=== PATIENT | male | born 1970 | race Caucasian/White ===

== ENCOUNTER 2024-01-17 17:14 | Inpatient (IN) | payer OTHER, SELFPAY ==
[2024-01-17] VITALS (7 sets, daily range): BP systolic 109–189; BP diastolic 71–109; BMI 30.9; BMI 30.6
[2024-01-17 14:20] LABS: % Basophils 0.2 % (0-2); % Immature Granulocytes 0.9 % (0-0.5); % Lymphocytes 2.4 % (20.5-51.1); % Monocytes 7.9 % (1.7-9.3); % Neutrophils 88.6 % (42.2-75.2); Absolute Basophils 0.1 10^3/uL (0-0.2); Absolute Immature Granulocytes 0.3 10^3/uL (0-0.05); Absolute Lymphocytes 0.8 10^3/uL (1.2-3.4); Absolute Monocytes 2.6 10^3/uL (0.1-0.6); Absolute Neutrophils 28.6 10^3/uL (1.4-6.5); Hematocrit 53.5 % (39.0-52.0); Hemoglobin 18.1 g/dL (13.0-18.0); Mean Corp Hgb Conc. 33.8 g/dL (33.0-37.0); Mean Corpuscular Hgb 29.9 pg (27.0-31.0); Mean Corpuscular Volume 88.3 fL (80.0-94.0); Nucleated Red Blood Cells % 0 % (-); Platelet Count 301 10^3/uL (130-400); Red Blood Cell Count 6.06 10^6/uL (4.70-6.10); Red Cell Dist. Width 13.3 % (11.5-14.5); White Blood Cell Count 32.3 10^3/uL (4.8-10.8)
[2024-01-17 14:38] LABS: ALT (SGPT) 25 U/L (0-50); AST (SGOT) 25 U/L (17-59); Albumin 4.8 g/dl (3.5-5.0); Alkaline Phosphatase 65 U/L (38-126); Blood Urea Nitrogen 16 mg/dl (9-20); Calcium 10.1 mg/dl (8.4-10.2); Carbon Dioxide 26 mmol/L (22-30); Chloride 97 mmol/L (98-107); Estimated Creatinine Clearance 96 ml/min; Glucose 166 mg/dl (70-99); Lipase 26 U/L (23-300); Potassium 4.4 mmol/L (3.5-5.1); Sodium 134 mmol/L (135-145); Total Bilirubin 2.1 mg/dl (0.2-1.3); Total Protein 7.7 g/dl (6.3-8.2); eGFR > 60.00
[2024-01-17] MEDS: DILAUDID 1 MG IV ×4 (14:51→23:53)
[2024-01-17] MEDS: ZOFRAN 4 MG IV (14:52)
[2024-01-17] MEDS: NSS 1000 IV (14:52)
--- NOTE | 2024-01-17 15:07 | ED.GENMED ---
History of Present Illness
<Derrick Overton Jr., PA-C - Last Filed: 01/17/24 15:58>
General
Chief Complaint: Abdominal Symptoms
Source: patient and spouse
Exam Limitations: none
Time Seen by Provider: 01/17/24 14:44
Nursing documentation reviewed up to this point in time: agreed with
Travel History
Have you had any contact with someone who has COVID-19?: No
Do you have any symptoms of coronavirus? Fever > 100 degrees, chills, cough, shortness of breath, sore throat, loss of taste or smell, muscle aches, or headache?: No
History of Present Illness
History of Present Illness:
53-year-old male without significant past medical history presenting to the emergency department today with concerns of 2 days of right lower quadrant Hans pain gradually worsening over the past 2 days. Had a low-grade temperature and
significant findings on exam at urgent care earlier today and sent to the ER. Denies vomiting has had some nausea denies significant changes in bowel movements. Denies similar symptoms in the past no history of surgeries.
Past History
<Derrick Overton Jr., PA-C - Last Filed: 01/17/24 15:58>
Past History
ED Past Medical History: None
ED Past Surgical History: Other (Noncontributory)
Social History
Tobacco: Non-smoker
Alcohol: Occasional
Drug: None
Personal:
Living: with family
Employment: Employed
Family History
Family History: Other (Noncontributory)
Review of Systems
<Derrick Overton Jr., PA-C - Last Filed: 01/17/24 15:58>
Review of Systems
Allergies reviewed?: Yes
All Other Systems: ROS reviewed and negative except as documented in HPI and ROS
Phy Exam
<Derrick Overton Jr., PA-C - Last Filed: 01/17/24 15:58>
Physical Exam
Physical Exam:
GENERAL: Alert , in no apparent distress
EYE: pupils equal and reactive
NECK: Supple, no significant adenopathy.
ENT: o/p clr, mmm.
CARDIAC: Regular rate and rhythm .
LUNGS: Clear breath sounds bilaterally, no acute respiratory distress, no wheezes/rales/rhonchi
ABDOMEN: Significant involuntary guarding to the right lower quadrant of the abdomen. Also discomfort suprapubic region. Otherwise mild discomfort throughout the remainder of the abdomen.
NEUROLOGICAL: Alert and oriented, no focal neuro deficits
SKIN: Warm and dry, skin intact.
MUSCULOSKELETAL: No edema, well perfused.
PSYCH: Normal and appropriate interaction.
Course
<Derrick Overton Jr., PA-C - Last Filed: 01/17/24 15:58>
Orders/Labs/Results
Orders:
Orders
01/17/24 13:58
CT Abd/Pel (IV only)-[facility] only Urgent
Comment:
Reason For Exam: pain
01/17/24 14:03
CMP [Comprehensive Metabolic Panel] Urgent
Complete Blood Count/With Diff Urgent
Lipase Urgent
01/17/24 14:50
0.9% Sodium Chloride 1000 ml [Nss] 1,000 ml IV BOLUS
HYDROmorphone [Dilaudid] 1 mg .ROUTE .STK-MED ONE
HYDROmorphone [Dilaudid] 1 mg IV NOW STA
Ondansetron Injectable [Zofran] 4 mg .ROUTE .STK-MED ONE
Ondansetron Injectable [Zofran] 4 mg IV NOW STA
01/17/24 14:54
Lactic Acid Urgent
Piperacillin/Tazo 4.5 Gram [Zosyn] 4.5 gram in 100 ml IV NOW
01/17/24 16:04
Admit/Transfer Patient As Directed
Co-Sign Provider:
Level of Care: Inpatient admission
Assign to:: Medical/Surgical
Physician / Group: [facility]inson/General surgery
Diagnosis: appendicitis/peritonitis
Reason for Hospitalization: perforated appendicitis
Expected length of stay greater than two midnights?: Yes
ELOS- Estimated Length of Stay in days: 3
I certify the patient meets the requirements for IP care: Yes
01/17/24 16:06
Code Status As Directed
Resuscitation Status: Full Code
Abnormal Lab Results
01/17/24
14:03
WBC 32.3 H 10^3/uL
(4.8-10.8)
Hgb 18.1 H g/dL
(13.0-18.0)
Hct 53.5 H %
(39.0-52.0)
Abs Immat Gran (auto) 0.3 H 10^3/uL
(0-0.05)
Absolute Neuts (auto) 28.6 H 10^3/uL
(1.4-6.5)
Absolute Lymphs (auto) 0.8 L 10^3/uL
(1.2-3.4)
Absolute Monos (auto) 2.6 H 10^3/uL
(0.1-0.6)
Immature Gran % 0.9 H %
(0-0.5)
Neutrophils % 88.6 H %
(42.2-75.2)
Lymphocytes % 2.4 L %
(20.5-51.1)
Sodium 134 L mmol/L
(135-145)
Chloride 97 L mmol/L
(98-107)
Glucose 166 H mg/dl
(70-99)
Total Bilirubin 2.1 H mg/dl
(0.2-1.3)
01/17/24 14:03
01/17/24 14:03
Vital Signs
Initial and Last Documented VS:
Initial Vital Signs
Temp Pulse Resp BP Pulse Ox
100.3 F 111 16 189/109 96
01/17/24 13:44 01/17/24 13:44 01/17/24 13:44 01/17/24 13:44 01/17/24 13:44
Last Documented Vital Signs
Temp Pulse Resp BP Pulse Ox
100.3 F 111 16 189/109 96
01/17/24 13:44 01/17/24 13:44 01/17/24 13:44 01/17/24 13:44 01/17/24 13:44
<Endy Villeda MD - Last Filed: 01/17/24 16:13>
Orders/Labs/Results
Orders:
Orders
01/17/24 13:58
CT Abd/Pel (IV only)-[facility] only Urgent
Comment:
Reason For Exam: pain
01/17/24 14:03
CMP [Comprehensive Metabolic Panel] Urgent
Complete Blood Count/With Diff Urgent
Lipase Urgent
01/17/24 14:50
0.9% Sodium Chloride 1000 ml [Nss] 1,000 ml IV BOLUS
HYDROmorphone [Dilaudid] 1 mg .ROUTE .STK-MED ONE
HYDROmorphone [Dilaudid] 1 mg IV NOW STA
Ondansetron Injectable [Zofran] 4 mg .ROUTE .STK-MED ONE
Ondansetron Injectable [Zofran] 4 mg IV NOW STA
01/17/24 14:54
Lactic Acid Urgent
Piperacillin/Tazo 4.5 Gram [Zosyn] 4.5 gram in 100 ml IV NOW
01/17/24 16:04
Admit/Transfer Patient As Directed
Co-Sign Provider:
Level of Care: Inpatient admission
Assign to:: Medical/Surgical
Physician / Group: Linson/General surgery
Diagnosis: appendicitis/peritonitis
Reason for Hospitalization: perforated appendicitis
Expected length of stay greater than two midnights?: Yes
ELOS- Estimated Length of Stay in days: 3
I certify the patient meets the requirements for IP care: Yes
01/17/24 16:06
Code Status As Directed
Resuscitation Status: Full Code
Abnormal Lab Results
01/17/24
14:03
WBC 32.3 H 10^3/uL
(4.8-10.8)
Hgb 18.1 H g/dL
(13.0-18.0)
Hct 53.5 H %
(39.0-52.0)
Abs Immat Gran (auto) 0.3 H 10^3/uL
(0-0.05)
Absolute Neuts (auto) 28.6 H 10^3/uL
(1.4-6.5)
Absolute Lymphs (auto) 0.8 L 10^3/uL
(1.2-3.4)
Absolute Monos (auto) 2.6 H 10^3/uL
(0.1-0.6)
Immature Gran % 0.9 H %
(0-0.5)
Neutrophils % 88.6 H %
(42.2-75.2)
Lymphocytes % 2.4 L %
(20.5-51.1)
Sodium 134 L mmol/L
(135-145)
Chloride 97 L mmol/L
(98-107)
Glucose 166 H mg/dl
(70-99)
Total Bilirubin 2.1 H mg/dl
(0.2-1.3)
01/17/24 14:03
01/17/24 14:03
Vital Signs
Initial and Last Documented VS:
Initial Vital Signs
Temp Pulse Resp BP Pulse Ox
100.3 F 111 16 189/109 96
01/17/24 13:44 01/17/24 13:44 01/17/24 13:44 01/17/24 13:44 01/17/24 13:44
Last Documented Vital Signs
Temp Pulse Resp BP Pulse Ox
100.3 F 111 16 189/109 96
01/17/24 13:44 01/17/24 13:44 01/17/24 13:44 01/17/24 13:44 01/17/24 13:44
<Derrick Overton Jr., PA-C - Last Filed: 01/17/24 15:58>
MDM/Problems Addressed
MDM/Problems Addressed:
53-year-old male presenting to the emergency department today with concerns of worsening right lower quadrant abdominal pain over the past 2 days. Upon arrival temperature of 100.3 and tachycardic. White count of 32.3. Significant discomfort to
the right lower quadrant on physical exam. Concern for appendicitis potentially perforated at this point. CT scan confirming the diagnosis. Patient with significant improvement of symptoms after receiving Dilaudid and Zofran. Also started on
antibiotics. Case discussed with general surgery that accept to their service for IV antibiotics and monitoring.
<Derrick Overton Jr., PA-C - Last Filed: 01/17/24 15:58>
*Critical Care Note
Total Time (30-74mins, 75-104mins- exclusive of procedures): Not Applicable
ED Attending Note
<Derrick Overton Jr., PA-C - Last Filed: 01/17/24 15:58>
-
Portions of this chart may have been created with voice recognition software.� Occasional wrong word or��sound alike� substitutions may have occurred due to the inherent limitations of voice recognition software.
<Endy Villeda MD - Last Filed: 01/17/24 16:13>
ED Attending Note
Patient seen and examined by attending physician: Yes
I performed the substantive portion of visit, reviewed & personally made and approve the management plan that is documented in note by myself or BEE.: Yes
ED Attending Note:
Progressive right lower quadrant pain over 2 days. Some vomiting. Low-grade fever.
Significant tenderness to the right lower quadrant with referred tenderness. Rebound and guarding. CT shows perforation. Antibiotics and referred to surgery.
Discharge Plan
Departure
Patient Disposition: Admit
Date of Disposition: 01/17/24
Time of Disposition: 15:57
Admit to: Med/Surg
Admit to doctor: Jin
Presentation/result/management discussed w/ accepting MD/DO: Fauzia anderson
Patient with high blood pressure during this ER visit?: No
Condition: Good
Covid-19: Not Applicable
Discharge Problem:
Acute appendicitis
Prescriptions:
No Action
ibuprofen 200 mg Tablet
600 mg PO BIDPRN PRN (Reason: mild pain)
collagen powder
2 tsp PO DAILY
Interventions
Interventions:
*ED COVID-19 Vaccine History Last Done: 01/17/24 13:44
Discharge Date and Time
Print Language: GREENLANDIC
--- NOTE | 2024-01-17 16:10 | HPS.HSE ---
Family Physician
-
Family Physician:
Chief Complaint
-
abdominal pain
History of Present Illness
Mr Love is a 53 yo male without significant medical history presenting with <48 hour history of abdominal pain with nausea and vomiting which began Saturday evening. His pain was initially generalized but the more he vomited, the more he noted
it became localized to his RLQ causing him to worry that he had pulled a muscle. Vomiting subsided the following day although nausea and poor appetite persisted. Pain to the RLQ persisted as well. He felt he may have had a fever yesterday morning
but did not have a thermometer to take his temperature. He is currently flushed with a low grade fever on arrival of 100.3. He is mildly tachycardic. On exam, he abdomen is significantly tender to light touch to the RLQ with guarding present. He
denies active nausea and is feeling some relief in pain since receiving analgesics in the ED. He does note persistent belching and has been unable to pass stool or flatus for the past 24 hours.
Medical History
Past Medical History
Past Medical History: Reports None
Past Surgical History: Reports None
Social History
Tobacco: Other (a cigar every other week)
Alcohol: Occasional
Personal:
Living: With Family
Employment: Employed
Family History
Family History: Not pertinent
Allergies / Home Medications
Allergies reflects when Allergies were last updated in [email or web address].
Home Medications with original date entered in [email or web address]
Allergy/Medication List:
Patient Allergies
Allergy/AdvReac Type Severity Reaction Status Date / Time
No Known Allergies Allergy Unverified 01/06/14 09:58
�Medication �Instructions �Recorded �Confirmed �Type
collagen 2 tsp PO DAILY 01/17/24 01/17/24 History
ibuprofen 200 mg tablet 600 mg PO BIDPRN PRN mild pain 01/17/24 01/17/24 History
Review of Systems
-
History Source: Patient and Family
A 12 point ROS was completed and negative except as noted: Yes
Physical Exam
Vital Signs
Vital Signs
Temp Pulse Resp BP Pulse Ox
100.3 F 111 16 189/109 96
01/17/24 13:44 01/17/24 13:44 01/17/24 13:44 01/17/24 13:44 01/17/24 13:44
Physical Exam
General: Fever; No Comfortable
HEENT: Moist mucous membranes
Respiratory: Non Labored Respirations
Cardiac: Regular Rhythm (ST on telemetry in low 100's)
GI: Soft, Tender (RLQ with guarding) and Distended
Musculoskeletal: No Edema
Skin: Warm
Neuro: Awake, Alert and AO x 3
Psych: Calm
Laboratory Results
-
01/17/24 14:03
01/17/24 14:03
Laboratory Results
Total Bilirubin 2.1 mg/dl (0.2-1.3) H 01/17/24 14:03
AST 25 U/L (17-59) 01/17/24 14:03
ALT 25 U/L (0-50) 01/17/24 14:03
Alkaline Phosphatase 65 U/L (38-126) 01/17/24 14:03
Lipase 26 U/L (23-300) 01/17/24 14:03
Data Reviewed
-
CT Scan: Image Personally Visualized and interpreted, Report Reviewed by me, Discussed with Physician, Discussed with Patient and Discussed with Family
Lab Data: Labs Reviewed by me, Discussed with Physician, Discussed with Patient and Discussed with Family
Old Records: Reviewed
Impression/Plan
-
IMPRESSION: 53 yo male without significant medical history presenting with <48 hours of nausea, vomiting and abdominal pain localizing to the RLQ. Peritoneal signs on exam with CT imaging consistent with perforated appendicitis with inflammation to
surrounding bowel. No abscess present. Low grade fever of 100.3 and tachycardia with significant leukocytosis (+SIRS), await lactic acid level. Likely ileus secondary to inflammatory changes.
Discussed management with patient and at bedside. He is higher risk for surgery given appendiceal perforation and noted inflammation to surrounding structures. Will manage with antibiotics and supportive care at this time and follow closely for
improvement.
PLAN:
--continue IV antibiotics with Zosyn
--Ofirmev 1gm q6h scheduled and Dilaudid prn for pain
--Zofran 4mg q6hprn nausea
--IVF with D5 1/2NSS with 20mEQ kcl at 100ml/hr
--Follow CBC/BMP/MG in AM
--NPO except sips of clears for comfort
--Lovenox 40mg SQ for VTE ppx with SCD's while in bed
[2024-01-17] MEDS: ZOSYN 100 IV (16:27)
[2024-01-17] MEDS: D5/0.45%NSS with KCL 20 MEQ 1000 IV (18:06)
[2024-01-17 18:21] LABS: Lactic Acid 1.1 mmol/L (0.7-2.0)
[2024-01-17] MEDS: OFIRMEV 100 IV (18:39)
--- NOTE | 2024-01-17 18:47 | PTCARENOTE ---
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 [place] texted Dr Carrasco.
[2024-01-17] MEDS: ZOSYN 50 IV (21:28)
[2024-01-17] MEDS: TORADOL 15 MG IV (22:47)
[2024-01-18] MEDS: OFIRMEV 100 IV ×4 (00:25→23:38)
[2024-01-18] MEDS: ZOSYN 50 IV ×4 (04:17→21:44)
[2024-01-18] MEDS: D5/0.45%NSS with KCL 20 MEQ 1000 IV ×2 (04:17→15:54)
[2024-01-18] MEDS: DILAUDID 1 MG IV ×4 (05:34→21:14)
[2024-01-18 07:00] VITALS: BP 116/64
[2024-01-18 08:52] LABS: Hematocrit 45.6 % (39.0-52.0); Hemoglobin 15.4 g/dL (13.0-18.0); Mean Corp Hgb Conc. 33.8 g/dL (33.0-37.0); Mean Corpuscular Volume 88.7 fL (80.0-94.0); Mean Platelet Volume 9.5 fL (7.4-10.4); Platelet Count 223 10^3/uL (130-400); Red Blood Cell Count 5.14 10^6/uL (4.70-6.10); Red Cell Dist. Width 13.2 % (11.5-14.5); White Blood Cell Count 22.6 10^3/uL (4.8-10.8)
[2024-01-18 09:00] LABS: Blood Urea Nitrogen 17 mg/dl (9-20); Calcium 8.9 mg/dl (8.4-10.2); Carbon Dioxide 29 mmol/L (22-30); Chloride 97 mmol/L (98-107); Estimated Creatinine Clearance 88 ml/min; Glucose 144 mg/dl (70-99); Potassium 3.9 mmol/L (3.5-5.1); Sodium 134 mmol/L (135-145); eGFR > 60.00
[2024-01-18] MEDS: DILAUDID 0.5 MG IV ×2 (12:30→18:57)
--- NOTE | 2024-01-18 14:27 | W.PN.GS2 ---
Addendum entered and electronically signed by Juan David Abdi MD 01/18/24 14:43:
I saw and examined the patient.
The Vice President Safety's note was reviewed and I agree with the note.
Comment: Pain improved. Denies n/v. Low grade temp noted, WBC improving. OK for CLD. Plan remains nonop mgmt as long as he continues to improve.
Original Note:
Today's Communication / Plan
-
Continue IVF/ABX
Ok for clear liquids
Ok to shower
Assessment / Plan
-
IMPRESSION: 53 yo male presenting with <48 hours of nausea, vomiting and abdominal pain localizing to the RLQ. Peritoneal signs on exam with CT imaging consistent with perforated appendicitis with inflammation to surrounding bowel. No abscess
present. Sepsis present but improvement with antibiotics.
Tmax 100.6, mild tachycardia
Leukocytosis trending down but still significantly elevated.
PLAN:
--continue IV antibiotics with Zosyn
--Tylenol q6h scheduled and Dilaudid prn for pain
--Zofran 4mg q6hprn nausea
--Continue IVF
--Follow labs
--Clear liquid diet
--Lovenox 40mg SQ for VTE ppx with SCD's while in bed
Subjective Data
-
Date of Service: January 18, 2024
Patient seen and examined at bedside with Dr. Abdi. Denies n/v. Belching resolved. Pain still an issue but well managed on current regimen, notes slight improvement from yesterday.
Objective Data
-
Intake and Output
01/17/24 01/18/24 01/19/24
06:59 06:59 06:59
Other:
Number of approximated MODERATE 1
amounts of urine
Vital Signs
Temp Pulse Resp BP Pulse Ox
99.0 F 91 16 116/64 97
01/18/24 07:00 01/18/24 07:00 01/18/24 07:00 01/18/24 07:00 01/18/24 07:00
Lab Results
01/18/24 08:02
01/18/24 08:02
Calcium 8.9 mg/dl (8.4-10.2) 01/18/24 08:02
Magnesium 2.0 mg/dl (1.6-2.3) 01/18/24 08:02
Total Bilirubin 2.1 mg/dl (0.2-1.3) H 01/17/24 14:03
AST 25 U/L (17-59) 01/17/24 14:03
ALT 25 U/L (0-50) 01/17/24 14:03
Alkaline Phosphatase 65 U/L (38-126) 01/17/24 14:03
Total Protein 7.7 g/dl (6.3-8.2) 01/17/24 14:03
Albumin 4.8 g/dl (3.5-5.0) 01/17/24 14:03
Physical Exam
-
NAD
ABD distended, RLQ very tender to light touch, +rebound/guarding
[2024-01-18 15:00] VITALS: BP 115/83
--- NOTE | 2024-01-18 16:00 | CM ---
Spoke with pt and at bedside
Pt lives with and daughter in a 2 story home
Independent, works FT, drives
Denies DME, past SNF/HH
Has ride at d/c
PCP - Dr Narayanan
Pharm - [facility]
Plan - Anticipate home no needs
[2024-01-18 23:22] VITALS: BP 124/75
[2024-01-19] MEDS: DILAUDID 0.5 MG IV (00:56)
[2024-01-19] MEDS: D5/0.45%NSS with KCL 20 MEQ 1000 IV ×2 (02:47→14:26)
[2024-01-19] MEDS: ZOSYN 50 IV ×4 (04:52→21:27)
[2024-01-19] MEDS: DILAUDID 1 MG IV ×2 (04:56→09:14)
[2024-01-19 07:00] VITALS: BP 113/77
[2024-01-19 07:17] LABS: Mean Corp Hgb Conc. 34.1 g/dL (33.0-37.0); Mean Platelet Volume 9.9 fL (7.4-10.4); Platelet Count 244 10^3/uL (130-400); Red Cell Dist. Width 13.1 % (11.5-14.5)
[2024-01-19 07:41] LABS: Blood Urea Nitrogen 10 mg/dl (9-20); Carbon Dioxide 28 mmol/L (22-30); Chloride 95 mmol/L (98-107); Estimated Creatinine Clearance 96 ml/min; Glucose 120 mg/dl (70-99); Potassium 3.5 mmol/L (3.5-5.1); Sodium 134 mmol/L (135-145); eGFR > 60.00
[2024-01-19] MEDS: TORADOL 10 MG IV ×3 (10:59→22:59)
[2024-01-19] MEDS: OFIRMEV 100 IV ×3 (11:02→22:59)
--- NOTE | 2024-01-19 14:08 | W.PN.GS2 ---
Addendum entered and electronically signed by Juan David Abdi MD 01/19/24 14:16:
I saw and examined the patient.
The Dowel Inserting Machine Operator's note was reviewed and I agree with the note.
Comment: Temp 101.4F overnight, tachycardia normalized, pain is controlled but returns as soon as the medications fade. WBC improving. Exam is slightly improved, remains exquisitely ttp to RLQ but no ttp elsewhere. Plan: Start clears, add PO pain
meds PRN, rpt scan ordered for the am to rule out development of abscess.
Original Note:
Today's Communication / Plan
-
Clear liquids
Pain management
Assessment / Plan
-
IMPRESSION: 53 yo male presenting with <48 hours of nausea, vomiting and abdominal pain localizing to the RLQ. CT imaging/exam consistent with perforated appendicitis with inflammation to surrounding bowel. No abscess present. Sepsis resolved with
antibiotics.
Fever overnight but currently afebrile. Tachycardia resolved
Leukocytosis trending down
PLAN:
--continue IV antibiotics with Zosyn
--Ofirmev and Toradol q6h scheduled and Dilaudid prn for pain
--Zofran 4mg q6hprn nausea
--Continue IVF
--Follow labs
--Clear liquid diet
--Lovenox 40mg SQ for VTE ppx with SCD's while in bed
Continue nonoperative management at this time. If pain pattern persists, plan follow up CT imaging to evaluate for abscess tentatively tomorrow.
Subjective Data
-
Date of Service: January 19, 2024
Patient seen and examined at bedside with Dr. Abdi. Denies n/v. Pain persists but pain meds are helping.
Objective Data
-
Intake and Output
01/18/24 01/19/24 01/20/24
06:59 06:59 06:59
Intake Total 1300 / 1300
Balance 1300 / 1300
Intake:
Oral fluids 1200 / 1200
IV piggybacks 100 / 100
Other:
Number of approximated MODERATE 1 3
amounts of urine
Vital Signs
Temp Pulse Resp BP Pulse Ox
98.3 F 93 17 113/77 93
01/19/24 07:00 01/19/24 07:00 01/19/24 07:00 01/19/24 07:00 01/19/24 07:00
Lab Results
01/19/24 05:48
01/19/24 05:48
Calcium 9.0 mg/dl (8.4-10.2) 01/19/24 05:48
Magnesium 2.0 mg/dl (1.6-2.3) 01/18/24 08:02
Total Bilirubin 2.1 mg/dl (0.2-1.3) H 01/17/24 14:03
AST 25 U/L (17-59) 01/17/24 14:03
ALT 25 U/L (0-50) 01/17/24 14:03
Alkaline Phosphatase 65 U/L (38-126) 01/17/24 14:03
Total Protein 7.7 g/dl (6.3-8.2) 01/17/24 14:03
Albumin 4.8 g/dl (3.5-5.0) 01/17/24 14:03
Physical Exam
-
NAD
ABD distended, RLQ very tender to light touch, +rebound/guarding
[2024-01-19 15:00] VITALS: BP 129/86
[2024-01-19] MEDS: MYLICON 80 MG PO (23:30)
[2024-01-19 23:50] VITALS: BP 134/72
[2024-01-20] VITALS (7 sets, daily range): BP systolic 80–139; BP diastolic 71–91
[2024-01-20] MEDS: D5/0.45%NSS with KCL 20 MEQ 1000 IV (01:36)
[2024-01-20] MEDS: ZOSYN 50 IV ×4 (03:27→22:27)
[2024-01-20] MEDS: MYLICON 80 MG PO ×3 (04:49→19:58)
[2024-01-20] MEDS: TORADOL 10 MG IV ×4 (04:49→22:28)
[2024-01-20] MEDS: OFIRMEV 100 IV (04:50)
[2024-01-20 06:11] LABS: Mean Corp Hgb Conc. 34.9 g/dL (33.0-37.0); Mean Corpuscular Hgb 30.1 pg (27.0-31.0); Mean Corpuscular Volume 86.3 fL (80.0-94.0); Mean Platelet Volume 9.3 fL (7.4-10.4); Platelet Count 275 10^3/uL (130-400); Red Blood Cell Count 4.98 10^6/uL (4.70-6.10); Red Cell Dist. Width 13.1 % (11.5-14.5); White Blood Cell Count 18.9 10^3/uL (4.8-10.8)
[2024-01-20 06:29] LABS: Blood Urea Nitrogen 9 mg/dl (9-20); Carbon Dioxide 25 mmol/L (22-30); Chloride 100 mmol/L (98-107); Estimated Creatinine Clearance 117 ml/min; Glucose 140 mg/dl (70-99); Potassium 3.7 mmol/L (3.5-5.1); Sodium 132 mmol/L (135-145); eGFR > 60.00
[2024-01-20] MEDS: OMNIPAQUE 50 ML PO (07:04)
--- NOTE | 2024-01-20 08:45 | W.PN.GS2 ---
Addendum entered and electronically signed by Raúl Argueta MD 01/20/24 16:02:
I saw and examined the patient independently.
The Electrical Lineman's note was reviewed and I agree with the note, assessment and plan except where noted below.
Comment: 53-year-old male presenting with perforated appendicitis. Managing nonoperatively.
Repeat CT scan today demonstrates collection in the right lower quadrant, not completely walled off per se but does not appear like this is free fluid in appears fairly contained. Will consult interventional radiology for percutaneous drain
placement.
Overall progressing well on antibiotics. Can continue a liquid diet for now, will advance pending IR plans and clinical course.
Original Note:
Today's Communication / Plan
-
CT abd/pelvis
Pain management
ABX
Assessment / Plan
-
IMPRESSION: 53 yo male presenting with <48 hours of nausea, vomiting and abdominal pain localizing to the RLQ. CT imaging/exam consistent with perforated appendicitis with inflammation to surrounding bowel. No abscess present.
AFVSS
Leukocytosis trending down on abx
PLAN:
--continue IV antibiotics with Zosyn
--Ofirmev and Toradol q6h scheduled and Dilaudid prn for pain
--Zofran 4mg q6hprn nausea
--Continue IVF
--Follow labs
--Repeat CT imaging today to evaluate for abscess
--Clear liquid diet, advance pending imaging
--Lovenox 40mg SQ for VTE ppx with SCD's while in bed
Continue nonoperative management at this time
Subjective Data
-
Date of Service: January 20, 2024
Patient seen and examined at bedside with Dr. Argueta. Overall, feeling a little better. Pain is better controlled on scheduled meds. Sweats overnight. Denies n/v. Passing flatus and BM's.
Objective Data
-
Intake and Output
01/19/24 01/20/24 01/21/24
06:59 06:59 06:59
Intake Total 1300 / 1300 1180 / 1180
Balance 1300 / 1300 1180 / 1180
Intake:
Oral fluids 1200 / 1200 880 / 880
IV piggybacks 100 / 100 300 / 300
Other:
Number of approximated MODERATE 3 1
amounts of urine
Vital Signs
Temp Pulse Resp BP Pulse Ox
97.5 F 75 18 134/82 96
01/20/24 07:00 01/20/24 07:00 01/20/24 07:00 01/20/24 07:00 01/20/24 07:00
Lab Results
01/20/24 05:51
01/20/24 05:51
Calcium 9.0 mg/dl (8.4-10.2) 01/20/24 05:51
Magnesium 2.0 mg/dl (1.6-2.3) 01/18/24 08:02
Total Bilirubin 2.1 mg/dl (0.2-1.3) H 01/17/24 14:03
AST 25 U/L (17-59) 01/17/24 14:03
ALT 25 U/L (0-50) 01/17/24 14:03
Alkaline Phosphatase 65 U/L (38-126) 01/17/24 14:03
Total Protein 7.7 g/dl (6.3-8.2) 01/17/24 14:03
Albumin 4.8 g/dl (3.5-5.0) 01/17/24 14:03
Physical Exam
-
NAD
ABD ND, RLQ very tender to light touch, +rebound/guarding
[2024-01-20] MEDS: LR 1000 IV (10:28)
--- NOTE | 2024-01-20 11:07 | CM ---
Case management following for d/c planning
Cont antibiotics and working on pain management, afebrile
CM will cont to follow for d/c needs
Plan - home no needs
[2024-01-20] MEDS: TYLENOL 650 MG PO ×4 (11:54→23:18)
[2024-01-20] MEDS: DILAUDID 0.5 MG IV (11:57)
--- NOTE | 2024-01-20 16:32 | W.PN.UPDATE ---
Update Note
Progress Note Update
CT guided abscess drain placed RLQ, yielding 10 cc of purulent fluid. Sent for C+S.
[2024-01-20] MEDS: ZOFRAN 4 MG IV (22:32)
[2024-01-20] MEDS: DILAUDID 1 MG IV (23:18)
[2024-01-21 00:05] VITALS: BP 134/75
[2024-01-21] MEDS: TORADOL 10 MG IV ×4 (04:35→21:09)
[2024-01-21] MEDS: TYLENOL 650 MG PO ×4 (04:35→16:58)
[2024-01-21] MEDS: ZOSYN 50 IV ×4 (04:35→21:13)
[2024-01-21] MEDS: DILAUDID 0.5 MG IV (04:39)
[2024-01-21 05:42] LABS: Hematocrit 43.7 % (39.0-52.0); Hemoglobin 15.1 g/dL (13.0-18.0); Mean Corp Hgb Conc. 34.6 g/dL (33.0-37.0); Mean Corpuscular Hgb 29.8 pg (27.0-31.0); Mean Corpuscular Volume 86.4 fL (80.0-94.0); Platelet Count 304 10^3/uL (130-400); Red Blood Cell Count 5.06 10^6/uL (4.70-6.10); Red Cell Dist. Width 13.2 % (11.5-14.5); White Blood Cell Count 18.3 10^3/uL (4.8-10.8)
[2024-01-21 06:04] LABS: Blood Urea Nitrogen 11 mg/dl (9-20); Calcium 8.9 mg/dl (8.4-10.2); Carbon Dioxide 28 mmol/L (22-30); Chloride 99 mmol/L (98-107); Estimated Creatinine Clearance 106 ml/min; Glucose 116 mg/dl (70-99); Potassium 3.5 mmol/L (3.5-5.1); Sodium 135 mmol/L (135-145); eGFR > 60.00
[2024-01-21] MEDS: DILAUDID 1 MG IV ×4 (07:11→21:44)
[2024-01-21] MEDS: ZOFRAN 4 MG IV ×3 (07:16→21:14)
[2024-01-21 07:39] VITALS: BP 141/81
--- NOTE | 2024-01-21 09:02 | W.PN.GS2 ---
Today's Communication / Plan
-
-- Diet decrease to clears, may need NPO if nausea persists
-- IR drain with flushing daily
-- Continue IV antibiotics with Zosyn
Assessment / Plan
-
IMPRESSION: 53 yo male presenting with <48 hours of nausea, vomiting and abdominal pain localizing to the RLQ. CT imaging/exam consistent with perforated appendicitis with inflammation to surrounding bowel. No abscess present.
Repeat CT Abd/Pelvis (01/19): development of phlegmonous abscess
IR drain (01/19): Removal of 10 cc purulent fluid
Drain Cx: polymicrobial
AFVSS
Leukocytosis stable at 18
Discussed possible ileus and to take diet slow, may need to back down to NPO if nausea persists throughout the day, backed down to clears for now. Continue abx and IR drain.
PLAN:
-- Diet decrease to clears, may need NPO if nausea persists
-- IR drain with flushing daily
-- Continue IV antibiotics with Zosyn
-- Ofirmev and Toradol q6h scheduled and Dilaudid prn for pain
-- Zofran 4mg q6hprn nausea
-- Continue IVF
-- Lovenox 40mg SQ for VTE ppx with SCD's while in bed
-- Continue nonoperative management at this time
Subjective Data
-
Date of Service: January 21, 2024
Abdominal pain persists. Feels slightly nauseous. Passing multiple loose nonbloody stools and flatus. Ambulating. Afebrile.
Objective Data
-
Intake and Output
01/20/24 01/21/24 01/22/24
06:59 06:59 06:59
Intake Total 1180 / 1180 1200 / 1200
Output Total 15
Balance 1180 / 1180 1185 / 1185
Intake:
Oral fluids 880 / 880 1200 / 1200
IV piggybacks 300 / 300
Output:
Drain Output (Total)
Right Lower Abdomen Imtiaz-
Olvera Placed in IR
Other:
Number of approximated MODERATE 1 2
amounts of urine
Number of unmeasured liquid
stools
Rectum 6
Vital Signs
Temp Pulse Resp BP Pulse Ox
98.5 F 73 22 141/81 96
01/21/24 07:39 01/21/24 07:39 01/21/24 07:39 01/21/24 07:39 01/21/24 07:39
Lab Results
01/21/24 05:14
01/21/24 05:14
Calcium 8.9 mg/dl (8.4-10.2) 01/21/24 05:14
Magnesium 2.0 mg/dl (1.6-2.3) 01/18/24 08:02
Total Bilirubin 2.1 mg/dl (0.2-1.3) H 01/17/24 14:03
AST 25 U/L (17-59) 01/17/24 14:03
ALT 25 U/L (0-50) 01/17/24 14:03
Alkaline Phosphatase 65 U/L (38-126) 01/17/24 14:03
Total Protein 7.7 g/dl (6.3-8.2) 01/17/24 14:03
Albumin 4.8 g/dl (3.5-5.0) 01/17/24 14:03
Physical Exam
-
Gen: NAD
Abd: soft, tender to palpation, distended, non-peritoneal, NANDO drain feculent
--- NOTE | 2024-01-21 09:11 | CM ---
NANDO drain placed.
Adv to clear liquids.
Continue on IV antibiotics.
IV pain med as needed.
PLAN Home no anticipated needs at this time
[2024-01-21 15:00] VITALS: BP 141/84
[2024-01-21] MEDS: MYLICON 80 MG PO (17:03)
[2024-01-21] MEDS: TYLENOL PO ×2 (20:22→23:42)
[2024-01-21 23:38] VITALS: BP 159/86
[2024-01-22] MEDS: DILAUDID 1 MG IV ×2 (02:08→06:03)
[2024-01-22] MEDS: MYLICON 80 MG PO ×2 (02:08→20:25)
[2024-01-22] MEDS: TYLENOL PO (03:17)
[2024-01-22] MEDS: TORADOL 10 MG IV (03:56)
[2024-01-22] MEDS: ZOSYN 50 IV ×2 (03:58→09:23)
[2024-01-22 05:34] LABS: Hematocrit 42.5 % (39.0-52.0); Hemoglobin 14.6 g/dL (13.0-18.0); Mean Corp Hgb Conc. 34.4 g/dL (33.0-37.0); Mean Corpuscular Volume 87.3 fL (80.0-94.0); Mean Platelet Volume 8.9 fL (7.4-10.4); Platelet Count 306 10^3/uL (130-400); Red Blood Cell Count 4.87 10^6/uL (4.70-6.10); White Blood Cell Count 18.5 10^3/uL (4.8-10.8)
[2024-01-22 05:57] LABS: Blood Urea Nitrogen 12 mg/dl (9-20); Calcium 9.2 mg/dl (8.4-10.2); Carbon Dioxide 26 mmol/L (22-30); Chloride 95 mmol/L (98-107); Estimated Creatinine Clearance 106 ml/min; Glucose 109 mg/dl (70-99); Potassium 3.6 mmol/L (3.5-5.1); Sodium 134 mmol/L (135-145); eGFR > 60.00
[2024-01-22 07:00] VITALS: BP 163/77
[2024-01-22] MEDS: TYLENOL 650 MG PO (09:23)
[2024-01-22] MEDS: ROXICODONE 10 MG PO ×3 (10:51→20:28)
--- NOTE | 2024-01-22 11:29 | W.PN.GS2 ---
Today's Communication / Plan
-
Cont dfrain and IV abx
Trend WBC
Assessment / Plan
-
IMPRESSION: 53 yo male presenting with <48 hours of nausea, vomiting and abdominal pain localizing to the RLQ. CT imaging/exam consistent with perforated appendicitis with inflammation to surrounding bowel. No abscess present.
Repeat CT Abd/Pelvis (01/19): development of phlegmonous abscess
IR drain (01/19): Removal of 10 cc purulent fluid
Drain Cx: E coli (augmentin resistant)
AFVSS, pain improving
Leukocytosis stable at 18
PLAN:
-- OK for reg diet
-- IR drain with flushing daily
-- Continue IV antibiotics, abx de-escalated to levaquin/flagyl
-- Eduardo PO tylenol, prn ibuprofen/oxy/dilaudid
-- Zofran 4mg q6hprn nausea
-- Continue IVF
-- Lovenox 40mg SQ for VTE ppx with SCD's while in bed
-- Continue nonoperative management at this time
Subjective Data
-
Date of Service: January 22, 2024
AFVSS, feeling better today than yesterday, ambulating, voiding, denies n/v, graciela clears yesterday
Objective Data
-
Intake and Output
01/21/24 01/22/24 01/23/24
06:59 06:59 06:59
Intake Total 1200 / 1200 610 / 610
Output Total
Balance 1185 / 1185 585 / 585
Intake:
Oral fluids 1200 / 1200 600 / 600
Amount instilled into Drain (
Total)
Right Lower Abdomen Imtiaz-
Olvera Placed in IR
Output:
Drain Output (Total)
Right Lower Abdomen Imtiaz-
Olvera Placed in IR
Other:
Number of approximated MODERATE 2 2
amounts of urine
Number of unmeasured liquid
stools
Rectum 6
Vital Signs
Temp Pulse Resp BP Pulse Ox
98.0 F 87 16 163/77 97
01/21/24 23:38 01/22/24 07:00 01/22/24 07:00 01/22/24 07:00 01/22/24 07:00
Lab Results
01/22/24 05:19
01/22/24 05:19
Calcium 9.2 mg/dl (8.4-10.2) 01/22/24 05:19
Magnesium 2.0 mg/dl (1.6-2.3) 01/18/24 08:02
Total Bilirubin 2.1 mg/dl (0.2-1.3) H 01/17/24 14:03
AST 25 U/L (17-59) 01/17/24 14:03
ALT 25 U/L (0-50) 01/17/24 14:03
Alkaline Phosphatase 65 U/L (38-126) 01/17/24 14:03
Total Protein 7.7 g/dl (6.3-8.2) 01/17/24 14:03
Albumin 4.8 g/dl (3.5-5.0) 01/17/24 14:03
Physical Exam
-
Gen: NAD
Abd: localized moderate RLQ ttp without rebound or guarding (improved exam)
[2024-01-22 15:00] VITALS: BP 141/81
[2024-01-22] MEDS: FLAGYL 500 MG 100 IV ×2 (15:46→23:12)
[2024-01-22] MEDS: TYLENOL 1000 MG PO ×2 (15:46→23:12)
[2024-01-22] MEDS: LEVAQUIN 150 IV (18:32)
[2024-01-22 23:30] VITALS: BP 133/78
[2024-01-23] VITALS (10 sets, daily range): BP systolic 120–146; BP diastolic 46–84
[2024-01-23] MEDS: ROXICODONE 10 MG PO ×2 (02:22→13:00)
[2024-01-23] MEDS: MOTRIN 600 MG PO (03:28)
[2024-01-23] MEDS: TYLENOL 1000 MG PO ×2 (03:28→09:11)
[2024-01-23 05:46] LABS: Hematocrit 42.1 % (39.0-52.0); Hemoglobin 14.3 g/dL (13.0-18.0); Mean Corpuscular Volume 88.4 fL (80.0-94.0); Platelet Count 338 10^3/uL (130-400); Red Blood Cell Count 4.76 10^6/uL (4.70-6.10); Red Cell Dist. Width 13.1 % (11.5-14.5); White Blood Cell Count 21.7 10^3/uL (4.8-10.8)
--- NOTE | 2024-01-23 08:40 | W.PN.GS2 ---
Today's Communication / Plan
-
`
Assessment / Plan
-
IMPRESSION: 53 yo male with acute appendicitis complicated by perforation with intraabdominal abscess
Repeat CT Abd/Pelvis (01/19): development of phlegmonous abscess
IR drain (01/19): Removal of 10 cc purulent fluid
Drain Cx: E coli (augmentin resistant)
AFVSS, continue RLQ tenderness, WBC up to 21 today
Detailed discussions with patient regarding treatment options going forward. appears to have partially responded to IR drainage but not fully with persistent tenderness and leukocytosis. Reviewed option for repeat CT abdomen/pelvis imaging to see
if there are additional un-drained collections which could be accessed with a second IR drain and to reassess the surrounding inflammatory/phlegmonous response to his appendicitis. Alternatively we discussed the options for surgical intervention
which would be a diagnostic laparoscopy, possible open; possible appendectomy, possible ileocecectomy. After discussions patient would like to proceed with repeat imaging and continued attempts at nonoperative management pending CT findings.
Plan: CT a/p with IV and oral contrast today
-- Clear liquid diet
-- Continue IV antibiotics, levaquin/flagyl based on culture sensitivities
-- Eduardo PO tylenol, prn ibuprofen/oxy/dilaudid
-- Zofran 4mg q6hprn nausea
-- Continue IVF
-- Lovenox 40mg SQ for VTE ppx with SCD's while in bed
Subjective Data
-
Date of Service: January 23, 2024
Patient seen and examined.
He is tolerating a regular diet but still feels a bit bloated/distended. No nausea or vomiting.
Passing flatus on occasion but no bowel movement since Saturday.
Intermittent abdominal pain and cramps.
Objective Data
-
Intake and Output
01/22/24 01/23/24 01/24/24
06:59 06:59 06:59
Intake Total 610 / 610 1500 / 1500
Output Total
Balance 585 / 585 1480 / 1480
Intake:
Oral fluids 600 / 600 1500 / 1500
Amount instilled into Drain (
Total)
Right Lower Abdomen Imtiaz-
Olvera Placed in IR
Output:
Drain Output (Total)
Right Abdomen
Right Lower Abdomen Imtiaz-
Olvera Placed in IR
Other:
Number of approximated MODERATE 2 2
amounts of urine
Vital Signs
Temp Pulse Resp BP Pulse Ox
98.5 F 71 18 121/77 96
01/23/24 07:00 01/23/24 07:00 01/23/24 07:00 01/23/24 07:00 01/23/24 07:00
Lab Results
01/23/24 05:18
01/22/24 05:19
Calcium 9.2 mg/dl (8.4-10.2) 01/22/24 05:19
Magnesium 2.0 mg/dl (1.6-2.3) 01/18/24 08:02
Total Bilirubin 2.1 mg/dl (0.2-1.3) H 01/17/24 14:03
AST 25 U/L (17-59) 01/17/24 14:03
ALT 25 U/L (0-50) 01/17/24 14:03
Alkaline Phosphatase 65 U/L (38-126) 01/17/24 14:03
Total Protein 7.7 g/dl (6.3-8.2) 01/17/24 14:03
Albumin 4.8 g/dl (3.5-5.0) 01/17/24 14:03
Physical Exam
-
NAD AAOx3
ABD: softly distended, TTP localized to RLQ with localized guarding
IR drain in place with scant feculent like fluid
[2024-01-23] MEDS: FLAGYL 500 MG 100 IV ×2 (08:56→23:33)
[2024-01-23] MEDS: OMNIPAQUE 50 ML PO (09:12)
--- NOTE | 2024-01-23 14:14 | W.PN.SURGUPD ---
Surgical Update
Surgical Update
Patient seen in follow-up after CT imaging completed. IR drain appears to be in good position around the base of the appendix. However there continues to be significant surrounding extraluminal air adjacent to appendix, cecum and terminal ileum.
No new well-formed abscess or fluid collections further drainage. There continues to be a small fluid collection towards the tip of the appendix anteriorly as well. I discussed images personally with Dr. Grace who also reviewed them. From an
interventional radiology standpoint no additional targets for drainage.
Advised patient and his at bedside of CT imaging results. Dr. Grace is at bedside as well. We discussed further treatment options which could include continued attempt at nonoperative management however I advised them of my concern that if
there is continued progression in doing surgery if he becomes more ill or worsening inflammatory response would certainly lead to higher chance of necessitating ileocecectomy. We discussed proceeding with a diagnostic laparoscopy, possible
laparoscopic appendectomy, possible washout with drain placement with plan for interval appendectomy, possible ileocecectomy all pending intraoperative findings. This procedure was discussed utilizing written drawling to review pertinent anatomy
and potential findings with her management. We discussed alternative treatment options, benefits and potential risks of surgery such as but not limited to bleeding, infectious or wound related complications, iatrogenic injury to surrounding
viscera. We discussed the variable potential postoperative recovery pending operative findings as well. Any of the patient's or his 's concerns or questions were fully addressed and informed consent was obtained.
Patient has been added onto the OR schedule for today.
--- NOTE | 2024-01-23 15:25 | CM ---
Case management following for d/c planning
Pt for OR today
CM will follow for for d/c needs s/p OR
Plan - anticipate home no needs vs with VN
[2024-01-23] MEDS: TYLENOL PO (16:50)
--- NOTE | 2024-01-23 18:04 | W.SUR.PREOP ---
Pre-Operative Surgical Note
-
I have examined this patient prior to the performance of the scheduled procedure.
The patient's condition is unchanged from the time of the current History and
Physical and the patient is able to undergo the scheduled procedure.
[2024-01-23] MEDS: FLAGYL 500 MG IV (18:46)
[2024-01-23] MEDS: LEVAQUIN IV (18:47)
--- NOTE | 2024-01-23 20:38 | W.IMMPOSTOP ---
Addendum entered and electronically signed by Jacobo Winchester MD 01/24/24 16:05:
#[id number]
Original Note:
Surgical Immed Post Op Note
-
Primary Surgeon: Ranulfo
Assisting Surgeon: Eulalia HODGES
Pre-op Diagnosis: Perforated Acute Appendicitis with Intraabdominal Abscess
Post-op Diagnosis: Gangrenous Perforated Acute Appendicitis with Intraabdominal Abscess and Localized Peritonitis
Procedure Performed: Laparoscopic Appendectomy, washout intraabdominal abscesses, drain placement
Anesthesia Type: GETA + 0.25% Marcaine
Specimen / Cultures: Appendix
Estimated Blood Loss: 50mL
Complications: none immediate
Operative Findings: gangrenous appendix encased in inflammatory phelgmon including the sigmoid/epiploics, TI and cecum and adherent to abdominal wall/peritoneum. multiple small abscess cavities along length of gangrenous appendix. IR drain placed
in area of base of appendix and infection tracking retrocecal as well. tedious dissection to free of appendix down to base. base of cecum/appendix appeared intact enough to hold KADI staple line-utilized a endo-kadi 45mm purple stapler.
Drain: 19 shala placed from LLQ port site into lower midline to RLQ and retrocecal location.
Plan: continue IV abx, IVF hydration, labs in AM, NPO x sips as expecting ileus
updated post op via phone call
[2024-01-23] MEDS: DILAUDID 0.5 MG IV ×2 (20:48→20:57)
[2024-01-23] MEDS: DEMEROL 12.5 MG IV (21:11)
[2024-01-23] MEDS: NSS 1000 IV (21:14)
[2024-01-23] MEDS: DILAUDID 1 MG IV ×2 (21:53→23:35)
--- NOTE | 2024-01-23 21:55 | PTCARENOTE ---
Patient received from PACU s/p laparoscopic appendectomy. Patient in bed, c/o 07/30 pain. See MAR. at bedside. Incentive spirometer given to patient along with education. NANDO drain to LLQ, draining moderate amount of sanguinous fluid. Care
ongoing.
[2024-01-24 00:20] VITALS: BP 128/83
[2024-01-24 01:20] VITALS: BP 130/83
[2024-01-24] MEDS: DILAUDID 1 MG IV ×7 (01:39→18:38)
--- NOTE | 2024-01-24 02:50 | PTCARENOTE ---
Patient with no urine output since approx. 2100 in PACU when patient had goldstein catheter s/p laparoscopic appendectomy. Patient with >600 in bladder according to scan. Patient unable to void despite getting OOB and ambulating to bathroom with this
RNs assistance. No bladder scan/straight cath protocol ordered. HUGO Oliveira made aware and order placed for straight cath protocol. 800ml of [place] urine drained from bladder, patient tolerated well. Care ongoing.
[2024-01-24 02:55] VITALS: BP 140/80
[2024-01-24] MEDS: NSS 1000 IV ×3 (03:50→20:42)
[2024-01-24 05:28] LABS: Hematocrit 41.3 % (39.0-52.0); Mean Corp Hgb Conc. 33.9 g/dL (33.0-37.0); Mean Corpuscular Hgb 30.1 pg (27.0-31.0); Mean Corpuscular Volume 88.8 fL (80.0-94.0); Platelet Count 381 10^3/uL (130-400); Red Blood Cell Count 4.65 10^6/uL (4.70-6.10); Red Cell Dist. Width 13.2 % (11.5-14.5); White Blood Cell Count 23.1 10^3/uL (4.8-10.8)
[2024-01-24 06:01] LABS: Blood Urea Nitrogen 10 mg/dl (9-20); Calcium 8.5 mg/dl (8.4-10.2); Carbon Dioxide 23 mmol/L (22-30); Chloride 103 mmol/L (98-107); Estimated Creatinine Clearance 117 ml/min; Glucose 128 mg/dl (70-99); Potassium 4.6 mmol/L (3.5-5.1); Sodium 135 mmol/L (135-145); eGFR > 60.00
[2024-01-24 08:13] VITALS: BP 140/85
[2024-01-24] MEDS: DILAUDID 0.5 MG IV (08:46)
[2024-01-24] MEDS: FLAGYL 500 MG 100 IV ×3 (08:51→23:50)
--- NOTE | 2024-01-24 09:10 | W.PN.GS2 ---
Addendum entered and electronically signed by Jacobo Winchester MD 01/24/24 10:01:
Patient seen and examined with surgical nurse practitioner. Agree with documented postoperative progress note consistent with my simultaneous examination and evaluation.
Postoperative pain overnight adequately controlled with as needed Dilaudid but still present.
No nausea. Abdominal bloating/distention stable.
No flatus.
Unable to void overnight requiring straight cath x 1
AFVSS
Anticipated leukocytosis
ABD: Soft, moderately distended, tenderness localizing to surgical sites of suprapubic/right lower quadrant region.
NANDO with serosanguineous fluid, no clots not dark sanguinous
Assessment/plan: 53-year-old male POD #1 status post lap appendectomy, drainage intra-abdominal abscesses, NANDO drain placement
Postoperative urinary retention
Start Toradol ATC; continue Dilaudid as needed
Bladder scan but anticipating placement of Goldstein catheter for retention
N.p.o. except sips/chips for comfort
Renew IV fluids
Lovenox for VTE prophylaxis
Continue Levaquin Flagyl
Maintain NANDO drain likely stay in place for 7 to 10 days postop
Original Note:
Today's Communication / Plan
-
Sips of clears
Goldstein if unable to void
Continue abx
Assessment / Plan
-
IMPRESSION: 53 yo male with acute appendicitis complicated by perforation with intraabdominal abscess
Repeat CT Abd/Pelvis (01/19): development of phlegmonous abscess
IR drain (01/19): Removal of 10 cc purulent fluid
Drain Cx: E coli (augmentin resistant)
Repeat CT abd/pelvis (01/22): IR drain in place, significant extraluminal air, small fluid collection to tip of appendix
OR for lap appi (01/22): Gangrenous perforated acute appendicitis with abscess and localized peritonitis present. NANDO left in place.
AFVSS
WBC with slight trend up today, expected post op
Urinary retention present, CIC x1 for 800ml.
No n/v but await flatus/bowel function post op
Plan:
-- Place goldstein catheter if retention persists
-- NPO with sips of clears/ice chips
-- Continue IV antibiotics, levaquin/flagyl based on culture sensitivities
-- Eduardo Ofirmev/Toradol with prn Dilaudid
-- Zofran 4mg q6hprn nausea
-- Continue IVF
-- Continue with NANDO
-- Resume Lovenox 40mg SQ for VTE ppx with SCD's while in bed
Subjective Data
-
Date of Service: January 24, 2024
Patient seen and examined at bedside with Dr. Winchester. Primary nurse present. Has been unable to void post operatively. Denies n/v but no appetite. Not passing flatus as of yet. Pain present to pelvis.
Objective Data
-
Intake and Output
01/23/24 01/24/24 01/25/24
06:59 06:59 06:59
Intake Total 1500 / 1500 2580 / 2580
Output Total 905 / 905
Balance 1480 / 1480 1675 / 1675
Intake:
Oral fluids 1500 / 1500 480 / 480
IV fluids (Total) 2000 / 2000
Norm 500 / 500
IV piggybacks 100 / 100
Output:
Drain Output (Total) 20 105 / 105
Left Lower Abdomen Imtiaz- 105 / 105
Olvera
Right Abdomen 20 / 20
Straight cath output 800 / 800
Other:
Number of approximated MODERATE 2 2
amounts of urine
Vital Signs
Temp Pulse Resp BP Pulse Ox
97.7 F 93 16 140/85 96
01/24/24 08:13 01/24/24 08:13 01/24/24 08:13 01/24/24 08:13 01/24/24 08:13
Lab Results
01/24/24 05:15
01/24/24 05:15
Calcium 8.5 mg/dl (8.4-10.2) 01/24/24 05:15
Magnesium 2.0 mg/dl (1.6-2.3) 01/18/24 08:02
Total Bilirubin 2.1 mg/dl (0.2-1.3) H 01/17/24 14:03
AST 25 U/L (17-59) 01/17/24 14:03
ALT 25 U/L (0-50) 01/17/24 14:03
Alkaline Phosphatase 65 U/L (38-126) 01/17/24 14:03
Total Protein 7.7 g/dl (6.3-8.2) 01/17/24 14:03
Albumin 4.8 g/dl (3.5-5.0) 01/17/24 14:03
Physical Exam
-
Uncomfortable appearing
ABD soft, mild distention, mild lower abdominal tenderness
Incisions well approximated with intact glue, no erythema. NANDO with ssf
[2024-01-24] MEDS: TORADOL 10 MG IV ×3 (09:39→21:34)
[2024-01-24 14:55] VITALS: BP 120/71
--- NOTE | 2024-01-24 15:15 | PN.CDI ---
CDI
- -
CDI:
Physician Documentation Request
Admit Date: 01/17/24 17:14
Dear Luna ARIAS,
Patient admitted with gangrenous perforated acute appendicitis s/p laparoscopic appendectomy.
Na levels documented below:
Patient received IV NSS.
Laboratory Tests
01/17/24 01/18/24 01/19/24
14:03 08:02 05:48
Sodium 134 L 134 L 134 L
01/20/24 01/22/24
05:51 05:19
Sodium 132 L 134 L
Based on the above, please clarify in the progress notes, the appropriate diagnosis, if significant, that supports the above abnormalities and additional evaluation, monitoring and/or treatment rendered:
Hyponatremia
Insignificant abnormal lab findings
Other
Use of terms such as suspected, likely, concern for, or probable (associated with a specific diagnosis that is being evaluated, monitored, or treated as if it exists) are acceptable and can be coded in the inpatient setting, when documented at the
time of discharge.
Thank you,
Mary Ellen GIBSON,RN,CCDS
CDI Specialist
Available via tiger text
Please use your independent medical judgment in providing your response.
[2024-01-24] MEDS: LEVAQUIN 150 IV (15:22)
--- NOTE | 2024-01-24 15:37 | CM ---
CM following for d/c planning
Post op day 1
Remains on IV abx. Watching cx. Lauryn COLLIER, Advancing diet as graciela
Offered HH - declined
CM will follow for d/c needs
Plan - anticipate home no needs vs HH
[2024-01-24 23:40] VITALS: BP 126/72
[2024-01-25] MEDS: DILAUDID 1 MG IV ×4 (00:34→20:02)
[2024-01-25] MEDS: MYLICON 80 MG PO ×2 (00:36→08:40)
[2024-01-25] MEDS: TORADOL 10 MG IV ×4 (03:13→21:22)
[2024-01-25] MEDS: NSS 1000 IV ×2 (03:46→10:22)
[2024-01-25 07:00] VITALS: BP 173/95
[2024-01-25 08:39] LABS: Hemoglobin 13.2 g/dL (13.0-18.0); Mean Corp Hgb Conc. 33.8 g/dL (33.0-37.0); Mean Corpuscular Hgb 30.1 pg (27.0-31.0); Mean Corpuscular Volume 88.8 fL (80.0-94.0); Mean Platelet Volume 8.8 fL (7.4-10.4); Platelet Count 394 10^3/uL (130-400); Red Blood Cell Count 4.39 10^6/uL (4.70-6.10); Red Cell Dist. Width 13.3 % (11.5-14.5); White Blood Cell Count 15.7 10^3/uL (4.8-10.8)
[2024-01-25] MEDS: FLAGYL 500 MG 100 IV ×3 (08:41→23:06)
[2024-01-25 09:20] LABS: Blood Urea Nitrogen 9 mg/dl (9-20); Calcium 8.7 mg/dl (8.4-10.2); Carbon Dioxide 26 mmol/L (22-30); Chloride 102 mmol/L (98-107); Estimated Creatinine Clearance 117 ml/min; Glucose 113 mg/dl (70-99); Sodium 135 mmol/L (135-145); eGFR > 60.00
--- NOTE | 2024-01-25 10:31 | W.PN.GS2 ---
Today's Communication / Plan
-
`
Assessment / Plan
-
Assessment: 53-year-old male POD #1 status post lap appendectomy, drainage intra-abdominal abscesses, NANDO drain placement
Postoperative urinary retention
AFVSS
some signs of GI recovery
NANDO stable with SSF
hyponatremia the other day of no significance
Plan: multimodal pain control
reduce IVF rate
full liquids
levaquin/flagyl
maintain NANDO
lovenox for VTEp
goldstein in place for post op retention
Subjective Data
-
Date of Service: January 25, 2024
pt seen and examined
feels a bit better today, less post op discomfort/pain
no nausea and passing flatus regularly
goldstein in place
Objective Data
-
Intake and Output
01/24/24 01/25/24 01/26/24
06:59 06:59 06:59
Intake Total 2580 / 2580 2710 / 2710
Output Total 905 / 905 820 / 820 950 / 950
Balance 1675 / 1675 -820 / -820 1760 / 1760
Intake:
Oral fluids 480 / 480 960 / 960
IV fluids (Total) 2000 / 2000 1650 / 1650
Norm 500 / 500
IV piggybacks 100 / 100 100 / 100
Output:
Drain Output (Total) 105 / 105 70 / 70
Left Lower Abdomen Imtiaz- 105 / 105 70 / 70
Olvera
Urine, Goldstein 750 / 750 950 / 950
Straight cath output 800 / 800
Other:
Number of approximated MODERATE 2
amounts of urine
Vital Signs
Temp Pulse Resp BP Pulse Ox
98.8 F 85 17 173/95 98
01/25/24 07:00 01/25/24 07:00 01/25/24 07:00 01/25/24 07:00 01/25/24 07:00
Lab Results
01/25/24 08:21
01/25/24 08:21
Calcium 8.7 mg/dl (8.4-10.2) 01/25/24 08:21
Magnesium 2.0 mg/dl (1.6-2.3) 01/18/24 08:02
Total Bilirubin 2.1 mg/dl (0.2-1.3) H 01/17/24 14:03
AST 25 U/L (17-59) 01/17/24 14:03
ALT 25 U/L (0-50) 01/17/24 14:03
Alkaline Phosphatase 65 U/L (38-126) 01/17/24 14:03
Total Protein 7.7 g/dl (6.3-8.2) 01/17/24 14:03
Albumin 4.8 g/dl (3.5-5.0) 01/17/24 14:03
Physical Exam
-
NAD AAOX3
ABD: soft, nondistended, mild TTP, no R/R/G
NANDO with SSF - a bit more sanguinous but no clot
[2024-01-25 11:00] VITALS: BP 152/68
[2024-01-25 15:00] VITALS: BP 142/78
[2024-01-25] MEDS: LEVAQUIN 150 IV (16:40)
[2024-01-25] MEDS: TYLENOL 1000 MG PO (16:57)
[2024-01-25] MEDS: NSS IV (18:50)
[2024-01-26] MEDS: NSS 1000 IV ×2 (00:45→11:25)
[2024-01-26] MEDS: TORADOL 10 MG IV ×4 (03:15→21:57)
[2024-01-26 03:21] VITALS: BP 143/85
[2024-01-26] MEDS: FLAGYL 500 MG 100 IV ×3 (07:41→23:24)
[2024-01-26 07:54] LABS: Hematocrit 38.2 % (39.0-52.0); Mean Corpuscular Hgb 29.7 pg (27.0-31.0); Mean Corpuscular Volume 87.4 fL (80.0-94.0); Mean Platelet Volume 8.9 fL (7.4-10.4); Platelet Count 414 10^3/uL (130-400); Red Blood Cell Count 4.37 10^6/uL (4.70-6.10); Red Cell Dist. Width 13.1 % (11.5-14.5); White Blood Cell Count 13.1 10^3/uL (4.8-10.8)
[2024-01-26 08:52] LABS: Blood Urea Nitrogen 9 mg/dl (9-20); Calcium 8.8 mg/dl (8.4-10.2); Chloride 105 mmol/L (98-107); Estimated Creatinine Clearance 117 ml/min; Glucose 103 mg/dl (70-99); Potassium 4.2 mmol/L (3.5-5.1); Sodium 136 mmol/L (135-145); eGFR > 60.00
[2024-01-26 09:17] LABS: Carbon Dioxide 23 mmol/L (22-30)
[2024-01-26 10:44] VITALS: BP 139/81
--- NOTE | 2024-01-26 11:19 | W.PN.GS2 ---
Addendum entered and electronically signed by Jacobo Winchester MD 01/26/24 13:12:
Patient seen and examined. Feeling a bit better each day. Ambulating regularly.
Belching at times but no nausea, heartburn or indigestion. Passing flatus more regularly and loose BMs.
Postoperative pain improving.
AFVSS
ABD: Soft, less distended, mild tenderness around the incision sites and right lower quadrant.
NANDO sanguinous more than serous. Stripped tubing, appears functional still.
Assessment/plan: 53-year-old male postop day #3 lap appendectomy, drainage abscess and NANDO drain placed
Cap IV fluids with diet advancement
Low residue diet but watch portion sizes with resumption of p.o. intake
Continue IV Levaquin/Flagyl
Continue NANDO ~1 week postop or until clear serous fluid.
Goldstein catheter maintaining today, removed tomorrow a.m. for voiding trial
Possible DC in 24 to 48 hours pending clinical course
Original Note:
Today's Communication / Plan
-
Advance diet
Void trial in AM
Assessment / Plan
-
Assessment: 53-year-old male POD #3 status post lap appendectomy, drainage intra-abdominal abscesses, NANDO drain placement
Postoperative urinary retention
AFVSS
+BM's/flatus. Tolerating FLD but still with poor appetite
NANDO stable with SSF
WBC continues to trend down
Electrolytes/renal function normal
Plan: multimodal pain control
reduce IVF rate
advance to low residue diet as tolerated
levaquin/flagyl: will plan to transition to PO upon d/c for additional 10 days
maintain NANDO, will continue upon d/c for about 5-7 days. CM consulted to discuss VNA
lovenox for VTEp
goldstein in place for post op retention, plan to remove in AM for voiding trial
Subjective Data
-
Date of Service: January 26, 2024
Patient seen and examined at bedside with Dr. Winchester. Ambulating in hallways. Feeling overall much better. Still with residual RLQ pain but better. Passing flatus and stools. No N/V. Notes metallic taste in his mouth.
Objective Data
-
Intake and Output
01/25/24 01/26/24 01/27/24
06:59 06:59 06:59
Intake Total 5110 / 5110 1480 / 1480
Output Total 820 / 820 3100 / 3100 2505 / 2505
Balance -820 / -820 2009 / 2009 -1025 / -1025
Intake:
Oral fluids 3360 / 3360 480 / 480
IV fluids (Total) 1650 / 1650 900 / 900
IV piggybacks 100 / 100 100 / 100
Output:
Drain Output (Total) 70 / 70 5 / 5
Left Lower Abdomen Imtiaz- 70 / 70 5 / 5
Olvera
Urine, Goldstein 750 / 750 3100 / 3100 2500 / 2500
Vital Signs
Temp Pulse Resp BP Pulse Ox
98.6 F 82 17 139/81 98
01/26/24 10:44 01/26/24 10:44 01/26/24 10:44 01/26/24 10:44 01/26/24 10:44
Lab Results
01/26/24 05:59
01/26/24 05:59
Calcium 8.8 mg/dl (8.4-10.2) 01/26/24 05:59
Magnesium 2.0 mg/dl (1.6-2.3) 01/18/24 08:02
Total Bilirubin 2.1 mg/dl (0.2-1.3) H 01/17/24 14:03
AST 25 U/L (17-59) 01/17/24 14:03
ALT 25 U/L (0-50) 01/17/24 14:03
Alkaline Phosphatase 65 U/L (38-126) 01/17/24 14:03
Total Protein 7.7 g/dl (6.3-8.2) 01/17/24 14:03
Albumin 4.8 g/dl (3.5-5.0) 01/17/24 14:03
Physical Exam
-
NAD AAOX3
ABD: soft, nondistended, mild TTP, no R/R/G
NANDO with SSF - a bit more sanguinous: stripped drain
[2024-01-26] MEDS: ROXICODONE 5 MG PO ×2 (13:59→23:22)
[2024-01-26 15:00] VITALS: BP 157/93
[2024-01-26] MEDS: MYLICON 80 MG PO (15:25)
[2024-01-26] MEDS: LEVAQUIN 150 IV (16:48)
[2024-01-26] MEDS: MELATONIN 5 MG PO (23:25)
[2024-01-27] MEDS: TORADOL 10 MG IV (04:37)
[2024-01-27 05:35] LABS: Hematocrit 39.6 % (39.0-52.0); Hemoglobin 13.4 g/dL (13.0-18.0); Mean Corp Hgb Conc. 33.8 g/dL (33.0-37.0); Mean Corpuscular Hgb 29.6 pg (27.0-31.0); Mean Corpuscular Volume 87.4 fL (80.0-94.0); Mean Platelet Volume 8.9 fL (7.4-10.4); Platelet Count 406 10^3/uL (130-400); Red Blood Cell Count 4.53 10^6/uL (4.70-6.10); White Blood Cell Count 12.6 10^3/uL (4.8-10.8)
[2024-01-27 07:55] VITALS: BP 124/81
[2024-01-27] MEDS: FLAGYL 500 MG 100 IV (08:39)
--- NOTE | 2024-01-27 10:24 | W.PN.GS2 ---
Today's Communication / Plan
-
Dispo planning
Assessment / Plan
-
Assessment: 53-year-old male POD # 4 status post lap appendectomy, drainage intra-abdominal abscesses, NANDO drain placement. Urinary retention, and expected ileus, now both resolved.
If patient passes trial of void, will plan for discharge later today.
Antibiotics x 10 days.
NANDO drain teaching, will need follow-up in 1 week.
Time Spent
Total Time Spent with Patient (in minutes): 25
Subjective Data
-
Date of Service: January 27, 2024
Interval Events:
No acute events overnight. Slept well. Pain Controlled. Denies Nausea/Vomiting, +bowel function. Tolerating diet.
Objective Data
-
Intake and Output
01/26/24 01/27/24 01/28/24
06:59 06:59 06:59
Intake Total 5110 / 5110 4480 / 4480
Output Total 3100 / 3100 5280 / 5280
Balance 2009 / 2009 -800 / -800
Intake:
Oral fluids 3360 / 3360 3480 / 3480
IV fluids (Total) 1650 / 1650 900 / 900
IV piggybacks 100 / 100 100 / 100
Output:
Drain Output (Total) 30 / 30
Left Lower Abdomen Imtiaz- 30 / 30
Olvera
Urine, Juares 3100 / 3100 3850 / 3850
Urine, Voided 1400 / 1400
Vital Signs
Temp Pulse Resp BP Pulse Ox
98.2 F 77 16 124/81 97
01/27/24 07:55 01/27/24 07:55 01/27/24 07:55 01/27/24 07:55 01/27/24 07:55
Lab Results
01/27/24 05:17
01/26/24 05:59
Calcium 8.8 mg/dl (8.4-10.2) 01/26/24 05:59
Magnesium 2.0 mg/dl (1.6-2.3) 01/18/24 08:02
Total Bilirubin 2.1 mg/dl (0.2-1.3) H 01/17/24 14:03
AST 25 U/L (17-59) 01/17/24 14:03
ALT 25 U/L (0-50) 01/17/24 14:03
Alkaline Phosphatase 65 U/L (38-126) 01/17/24 14:03
Total Protein 7.7 g/dl (6.3-8.2) 01/17/24 14:03
Albumin 4.8 g/dl (3.5-5.0) 01/17/24 14:03
Physical Exam
-
GENERAL/NEURO: Awake, Alert, no distress
CHEST: Unlabored breathing on RA
ABDOMEN: Soft, Non-Tender, Non-Distended, NANDO sanguinous
--- NOTE | 2024-01-27 10:34 | CM ---
Case management following for d/c planning
Received consult for VN-
--- NOTE | 2024-01-27 10:35 | CM ---
Addendum entered by Margo Petty 01/27/24 12:04:
Plan - Home with [facility]
[phone]
Original Note:
Case management following for d/c planning
Received consult for VN - pt with NANDO drain
[facility] with pt - agreed to VNA, no preference
Referral sent in [facility] for HH
Plan - home with [facility]
--- NOTE | 2024-01-27 12:12 | W.DCSUMMARY ---
Discharge Summary
Discharge Data
Date of Admission: 01/17/24
Date of Discharge: 01/27/24
-
Pending Results: No
Hospital Course
Mr. Love is a 53 yo male who presented with <48 hour history of abdominal pain with nausea and vomiting. CT imaging consistent with perforated appendicitis with inflammation to surrounding bowel. Given these CT findings he was initially followed
nonoperatively with bowel rest and antibiotics with resolution of fevers and some improvement in WBC counts; however, pain persisted with follow up CT on 01/19 demonstrating development of phlegmonous abscess and he was taken to IR for drainage. He
did partially respond with some minimal improvement, however pain and leukocytosis persisted.
Repeat CT on 01/22 significant surrounding extraluminal air adjacent to appendix, cecum and terminal ileum with small fluid collection towards the tip of the appendix anteriorly as well. At that point he was taken to the OR for laparoscopic
appendectomy and washout with gangrenous perforated appendix and localized peritonitis noted intraoperatively. Pain and leukocytosis improved post operatively. Diet was able to be advanced and well tolerated with passage of flatus and stools. He was
discharged with NANDO drain in place for outpatient follow up. His initial post operative recovery was complicated by acute urinary retention in the immediate post operative period necessitating placement of goldstein catheter. On date of discharge, goldstein
was able to be removed and he was able to void without difficulty.
Discharge Plan
-
Patient Disposition: Home (Routine Discharge)
Discharge Diagnosis/Procedures: Perforated appendicitis status post laparoscopic appendectomy
Condition: Good
Diet: Low Fiber
Activity: No strenuous activity
Additional Activity: Do not lift more than 20 lbs for the next 2-3 weeks
Driving Restrictions: No driving within 4-6 hours of taking narcotics
Bathing Restrictions: OK to Shower
Wound Care: Cover your drain with dry gauze dressing. Change after showering and as needed
Activity Restrictions/Additional Instructions:
Call your surgeon if you develop fevers >100.5, worsening abdominal pain, or nausea and vomiting.
Instructions: Low Fiber Diet, Imtiaz-Olvera Drain, How to Keep Track of Your Drainage
Referrals:
Shahid Narayanan I., [Family Provider] -
Jacobo Winchester MD [Active] - in less than 1 week
Prescriptions:
New
acetaminophen [acetaminophen] 325 mg tablet
650 mg PO Q4HPRN PRN (Reason: mild pain) Qty: 1 0RF
metronidazole 500 mg tablet
500 mg PO Q8H 10 Days Qty: 30 0RF
levofloxacin 500 mg tablet
500 mg PO DAILY Qty: 10 0RF
oxycodone 5 mg tablet
5 mg PO Q4HPRN PRN (Reason: breakthrough/severe pain) Qty: 15 0RF
Continued
ibuprofen 200 mg Tablet
600 mg PO BIDPRN PRN (Reason: mild pain)
collagen powder
2 tsp PO DAILY
Discharge Orders:
Discharge Patient (As Directed); Ordered 01/27/24
Ordered By: Luna East
Discharge Date and Time
Discharge Date/Time: 01/27/24 12:46
Print Language: BELARUSIAN
== END 2024-01-27 12:46 | disposition home health service (06) | DRG 853 ==
LOC: 3 WEST ACU 17:14
PROVIDERS: Physician Assistant; Radiology Vascular & Interventional Radiology; Registered Nurse; Surgery; ADMITTING PHYSICIAN Surgery; EMERGENCY PHYSICIAN Emergency Medicine; FAMILY PHYSICIAN Internal Medicine
PROC: 0W9G30Z Drainage of Peritoneal Cavity with Drainage Device, Percutaneous Approach (ICD-10-PCS; 2024-01-20)
PROC: 0W9G40Z Drainage of Peritoneal Cavity with Drainage Device, Percutaneous Endoscopic Approach (ICD-10-PCS; 2024-01-23)
PROC: 3E1M48Z Irrigation of Peritoneal Cavity using Irrigating Substance, Percutaneous Endoscopic Approach (ICD-10-PCS; 2024-01-23)
PROC: 0DTJ4ZZ Resection of Appendix, Percutaneous Endoscopic Approach (ICD-10-PCS; 2024-01-23)
PROC: 0T9B70Z Drainage of Bladder with Drainage Device, Via Natural or Artificial Opening (ICD-10-PCS; 2024-01-24)
DX: A41.9 Sepsis, unspecified organism (principal); K35.33 Acute appendicitis with perforation, localized peritonitis, and gangrene, with abscess; E87.1 Hypo-osmolality and hyponatremia; K66.0 Peritoneal adhesions (postprocedural) (postinfection); N99.89 Other postprocedural complications and disorders of genitourinary system; R33.8 Other retention of urine
CPT/HCPCS: 88304; 49406; 74177; 80048; 80053; 83605; 83690; 83735; 85025; 85027; 87070; 87077; 87186; 87205; 96361; 96374; 96375; 96376; 99152; 99285; Q9967